=== PATIENT | male | born 1970 | race Caucasian/White ===

== ENCOUNTER 2019-06-14 00:27 | Emergency (ER) | payer BC, OTHER ==
--- NOTE | 2019-06-14 01:05 | ED.PDOC ---
History of Present Illness - General Time Seen by Provider: 06/14/19 00:56 Source: patient Exam Limitations: no limitations - History of Present Illness Initial Comments: SENSATION OF FB TO THE LEFT EYE. HE SAYS THAT HE WAS GOING TO BED And SUDDENLY FELT THE SENSATION OF FB. HE HAS BEEN RUBBING HIS EYE AND NOW IT SEEMS TO HURT MORE. Timing/Duration: abrupt EENT Location: eye (L) Prearrival Treatment: no prearrival treatment Improving Factors: nothing Worsening Factors: nothing Allergies/Adverse Reactions: Allergies NO KNOWN ALLERGY Allergy (Verified 09/01/15 16:10) Home Medications: Ambulatory Orders NK 09/01/15 Review of Systems - Review of Systems Constitutional: States: no symptoms reported EENTM: States: eye pain, blurred vision, tearing Respiratory: States: no symptoms reported Cardiology: States: no symptoms reported Gastrointestinal/Abdominal: States: no symptoms reported Genitourinary: States: no symptoms reported Musculoskeletal: States: no symptoms reported Skin: States: no symptoms reported Neurological: States: no symptoms reported Endocrine: States: no symptoms reported Hematologic/Lymphatic: States: no symptoms reported Past Medical History (General) - Patient Medical History Hx Stroke: No Hx Congestive Heart Failure: No Hx Hypertension: Yes Hx Diabetes: No - Vaccination History Hx Tetanus, Diphtheria Vaccination: Yes - 2014 Hx Influenza Vaccination: No - Social History Hx Tobacco Use: No Family Medical History - Family History Father Living Status: Cause of : [place] Hx Family Hypertension: Yes Hx Cardiac Disease: Yes Physical Exam - Physical Exam General Appearance: Alert, Other - MODERATE DISTRESS. THE EYE EXAM: OPTHAINE, PALPEBRAL EVERSION: NO FB NOTED. FLUORECEIN STAIN -ABRASION NOTED AT 6 O'CLOCK. THE TARSAL CONJUNCTIVAE IS INJECTED. THE REST OF THE EXAM IS NORMAL Eye Exam: left other - LEFT CONJUNCTIVA IS INJECTED Nasal Exam: normal inspection Throat Exam: normal mouth inspection Neck: non-tender Cardiovascular/Respiratory: regular rate, rhythm Abdominal Exam: non-tender Neurologic: alert Departure - Departure Clinical Impression: Corneal abrasion Qualifiers: Encounter type: initial encounter Laterality: left Qualified Code(s): S05.02XA - Injury of conjunctiva and corneal abrasion without foreign body, left eye, initial encounter Time of Disposition: 01:41 Disposition: Discharge to Home or Self Care Condition: Good Instructions: Corneal Abrasion (DC) Diet: resume usual diet Home Medications: Ambulatory Orders NK 09/01/15 Additional Instructions: APPLY ERYTHROMYCIN OINTMENT ON THE LEFT EYE EVERY 6 HRS. NORCO EVERY 6 HRS.
[2019-06-14] MEDS ORDERED: TETRACAINE HCL 0.5% OPHTH SOL 1 DROP ONE (01:06)
[2019-06-14] MEDS ORDERED: SODIUM CHLORIDE 0.9% 1000ML 1,000 ML ONE (01:12)
[2019-06-14] MEDS ORDERED: HYDROcodone 5MG/APAP 325MG 1 EA TAB PO ONE (01:35)
[2019-06-14] MEDS ORDERED: HYDROCOD/APAP 5/325 (ER DISP) #3 TAB PO ONE (01:35)
[2019-06-14] MEDS ORDERED: ERYTHROMYCIN OPHTH OINT 1 APPLIC LEFT_EYE ONE (01:35)
[2019-06-14 02:24] VITALS: BP 169/113; TEMP 97.9; O2SAT 97
== END 2019-06-14 02:20 | disposition home or self-care (01) ==
LOC: ER 00:27
DX: S05.02XA Injury of conjunctiva and corneal abrasion without foreign body, left eye, initial encounter (principal); I10 Essential (primary) hypertension; Y92.9 Unspecified place or not applicable; X58.XXXA Exposure to other specified factors, initial encounter